=== PATIENT | female | born 1955 | race Caucasian/White ===

== ENCOUNTER 2016-09-17 09:40 | Emergency (ER) | payer MEDICARE ==
[2016-09-17 09:56] LABS: BASOPHIL# 0.1 X 10^3uL (0.0-0.1); BASOPHILS 0.7 % (0.0-2.0); EOSINOPHILS 3.7 % (0.0-6.0); EOSINOPHILS# 0.3 X 10^3uL (0.0-0.4); HEMOGLOBIN 14.7 g/dL (12.0-16.0); LYMPHOCYTES 42.1 % (20.0-40.0); LYMPHOCYTES# 3.4 X 10^3uL (0.8-3.8); MEAN CELL VOLUME 87.2 fL (80.0-100.0); MEAN CORPUS. HGB CONCENTRATION 34.1 g/dL (32.0-36.0); MEAN CORPUSCULAR HEMOGLOBIN 29.7 pg (29.0-35.0); MONOCYTES 9.5 % (2.0-10.0); MONOCYTES# 0.8 X 10^3uL (0.2-1.0); NEUTROPHILS# 3.4 X 10^3uL (2.6-6.7); PLATELET COUNT 290 X 10^3uL (130-440); RED BLOOD COUNT 4.94 X 10^6uL (4.20-6.10); RED CELL DISTRIBUTION WIDTH 13.1 % (11.5-14.5); WHITE BLOOD COUNT 8.1 X 10^3uL (3.9-10.7)
[2016-09-17] MEDS ORDERED: LIDOCAINE VISCOUS 2% 15 ML UDC ONE (10:04)
[2016-09-17] MEDS ORDERED: MAG-AL PLUS XS SUSP 30 ML UDC ONE (10:04)
[2016-09-17 10:08] LABS: BLOOD UREA NITROGEN 13 mg/dL (7-17); CALCIUM 9.2 mg/dL (8.4-10.2); CHLORIDE 104 mmol/L (98-107); CREATININE 0.7 mg/dL (0.5-1.0); EST GLOMERULAR FILTRATION RATE > 60 mL/min; GLUCOSE 120 mg/dL (70-100); MAGNESIUM 2.2 mg/dL (1.6-2.3); SODIUM 142 mmol/L (137-145)
--- NOTE | 2016-09-17 10:17 | RADIOLOGY REPORT ---
HISTORY: Chest pain. COMPARISON: None available. FINDINGS: 1 view of the chest obtained. Normal heart size. Grossly normal central pulmonary vessels and medias tinal contour. No confluent alveolar infiltrates. No pleural effusions. No pneumothorax. Anterior plate and screw device lower cervical spine. Degenerative changes thoracic spine. No definit e evidence for acute fracture. IMPRESSION: No evidence for active cardiopulmonary disease. Final Electronic Signature: This report was electronically signed by Ebenezer Alexander MD, FACR on 10:15 AM. [email or web address] /
[2016-09-17 10:23] LABS: TROPONIN I < 0.012 ng/mL (0.00-0.034)
[2016-09-17] MEDS ORDERED: NITROGLYCERIN 0.4 MG TAB.SUBL SUBLINGUAL ONE (10:27)
--- NOTE | 2016-09-17 11:07 | ER PHYSICIAN DOCUMENTATION ---
Physician Documentation [facility] Name:Karin Layne Age:60 yrs Sex:Female :1955 Arrival Date:09/17/2016 Time:09:40 BedTrauma-C Private MD:Chandni Bai ED, Scott Disposition: 09/17 10:42 Critical Care: not applicable. il Disposition: 09/17/16 10:44 Discharged to Home/Self Care. Impression: Esophageal Reflux. - Condition is Good. - Discharge Instructions: REFLUX ESOPHAGITIS Adult - ESOPHAGEAL REFLUX (Adult). - Medical Reconciliation form form. - Follow up: Chandni Bai DO; When: 1 week; Reason: Recheck today's complaints. - Problem is new. - Symptoms have improved. HPI: 09:51 This 60 yrs old Female presents to ER with complaints of Chest Pressure. il 09:51 The patient or guardian reports chest pain that is located primarily in the epigastric sc area, anterior chest wall. Onset: at 07:30. The pain does not radiate. There has been no movement of pain. Associated signs and symptoms: The patient has no apparent associated signs or symptoms. The chest pain is described as a pressure. Duration: The patient or guardian reports a single episode, that lasted 2 hour(s). Modifying factors: The symptoms are alleviated by sitting up. Historical: - Allergies: Wellbutrin; PENICILLINS; - Home Meds: 1. oxycodone-acetaminophen 10-325 mg oral tab 1 tab every 6 hours 2. OXYGEN 3. duloxetine 30 mg oral cpDR 1 cap 2 times per day 4. [place] Thyroid 60 mg oral tab 5. modafinil 200 mg oral tab 1 tab once daily 6. losartan-hydrochlorothiazide 100-25 mg oral tab 1 tab once daily 7. omeprazole 40 mg oral cpDR 1 cap once daily before a meal 8. astelin 137 MCG SPRAY 9. Flonase 50 mcg/actuation nasal spsn 1 spray 2 times per day 10. cyanocobalamin (vitamin B-12) 1,000 mcg oral tab - PMHx: THYROID PROBLEM; CHRONIC PAIN; SPINAL CORD INJURY C1-C7; HYPOXIA; OBESITY; SLEEP APNEA; HYPERCHOLESTEROLEMIA; DIABETES - IDDM; - Tetanus: < 10 years. - Ebola Screening: : Patient negative for fever greater than or equal to 101.5 degrees Fahrenheit, and additional compatible Ebola Virus Disease symptoms. - Immunization history: Flu Vaccine < 1 year. - Social history: Smoking status: Patient states former smoker of tobacco. ROS: 09:52 Constitutional: Negative for fever, chills, and weight loss. sc Eyes: Negative for injury, pain, redness, and discharge. ENT: Negative for injury, pain, and discharge. Neck: Negative for injury, pain, and swelling. Respiratory: Negative for shortness of breath, cough, wheezing, and pleuritic chest pain. Abdomen/GI: Negative for abdominal pain, nausea, vomiting, diarrhea, and constipation. Back: Negative for injury and pain. MS/Extremity: Negative for injury and deformity. Skin: Negative for injury, rash, and discoloration. 09:52 Neuro: Negative for headache, weakness, numbness, tingling, and seizure. sc 09:52 Cardiovascular: Positive for chest pain. Exam: Constitutional: This is a well developed, well nourished patient who is awake, alert, and in no acute distress. Head/Face: Normocephalic, atraumatic. Eyes: Pupils equal round and reactive to light, extra-ocular motions intact. Lids and lashes normal. Conjunctiva and sclera are non-icteric and not injected. Cornea within normal limits. Periorbital areas with no swelling, redness, or edema. ENT: Nares patent. No nasal discharge, no septal abnormalities noted. Tympanic membranes are normal and external auditory canals are clear. Oropharynx with no redness, swelling, or masses, exudates, or evidence of obstruction, uvula midline. Mucous membranes moist. Neck: Trachea midline, no thyromegaly or masses palpated, and no cervical lymphadenopathy. Supple, full range of motion without nuchal rigidity, or vertebral point tenderness. No meningismus. Chest/axilla: Normal chest wall appearance and motion. Nontender with no deformity. No lesions are appreciated. Cardiovascular: Regular rate and rhythm with a normal S1 and S2. No gallops, murmurs, or rubs. Normal PMI, no JVD. No pulse deficits. Respiratory: Lungs have equal breath sounds bilaterally, clear to auscultation and percussion. No rales, rhonchi or wheezes noted. No increased work of breathing, no retractions or nasal flaring. Abdomen/GI: Soft, non-tender, with normal bowel sounds. No distension or tympany. No guarding or rebound. No evidence of tenderness throughout. Back: No spinal tenderness. No costovertebral tenderness. Full range of motion. 09:52 Skin: Warm, dry with normal turgor. Normal color with no rashes, no lesions, and no sc evidence of cellulitis. 10:45 Cardiovascular: Rate: normal, Rhythm: regular. il Vital Signs: 09:45 BP 117 / 79; Pulse 82; Resp 17; Temp 98.3(TE); Pulse Ox 93% on 2 lpm NC; Weight 106.59 rh kg; Height 5 ft. 4 in. (162.56 cm); Pain 1/10; 11:05 BP 139 / 79; Pulse 80; Resp 16; Pulse Ox 95% on 2 lpm NC; Pain 0/10; rh 09:45 Body Mass Index 40.34 (106.59 kg, 162.56 cm) rh MDM: 09:43 Patient medically screened. il 09:48 EKG attached rh 10:41 Differential diagnosis: acute myocardial infarction, acute pericarditis, anxiety, sc esophagitis, gastroesophageal reflux disease (GERD). Patient took aspirin. Data reviewed: vital signs, nurses notes, old medical records, lab test result(s), EKG, radiologic studies, and as a result, I will continue to observe the patient. 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 ECG:. 10:44 Patient did not receive fibrinolytic due to. il 10:45 ED course: Symptoms resolved with gi cocktail and walking around and patient said early sc satiety in recent months. Consider further eval for hiatal hernia, gastritis. Will continue daily prilosec.. 09/17 09:57 Order name: CBC AUTO DIF, MDIF/RMOR IF IND; Complete Time: 10:46 EDMS 09/17 10:46 Interpretation: Normal: Normal. il 09/17 10:24 Order name: BASIC METABOLIC PANEL; Complete Time: 10:30 EDMS 09/17 10:30 Interpretation: Normal. il 09/17 10:24 Order name: MAGNESIUM; Complete Time: 10:30 EDMS 09/17 10:30 Interpretation: Normal. il 09/17 10:24 Order name: TROPONIN I; Complete Time: 10:30 EDMS 09/17 10:30 Interpretation: Normal. il 09/17 10:08 Order name: CHEST; [place] [id number] [facility] 09/17 10:19 Order name: CHEST; [place] [id number]; Complete Time: 10:30 [facility] 09/17 10:30 Interpretation: Normal. il 09/17 09:49 Order name: EKG - 12 Lead; Complete Time: 09:50 09/17 09:49 Order name: Iv Saline Lock; Complete Time: 09/17 09:49 Order name: Oxygen; Complete Time: 09/17 09:49 Order name: Cardiac Monitoring - Continuous; Complete Time: 09/17 09:49 Order name: Pulse Ox Continuous; Complete Time: EC:41 Rate is 70 beats/min. Rhythm is regular. QRS [place] is Normal. CA interval is normal. QRS sc interval is normal. QT interval is normal. No Q waves. T waves are Normal. No ST changes noted. Clinical impression: Normal ECG. Interpreted by me. Reviewed by me. Dispensed Medications: 09:53 Drug: GI Cocktail w/o Donnatol - (Maalox Suspension 30 ml, Lidocaine Liquid 2 % 15 ml); rh Route: PO; 10:12 Follow up: Response: No adverse reaction 10:17 Drug: Nitroglycerin 0.4 mg; Route: Sublingual; 11:06 Follow up: Response: No adverse reaction 10:17 Drug: Aspirin 81 mg, 4 tabs, total of 324 mg - Aspirin 81 mg; Route: PO; 11:06 Follow up: Response: No adverse reaction Point of Care Testing: Urine Dip: 10:40 pH: 7.0; ; Specific [place]: 1.015; Ketones: Negative; Glucose: Negative; Protein: em3 Negative; Leukocytes: Negative; Nitrite: Negative ; Blood: Negative; Bilirubin: Negative ; Urobilinogen: Normal Signatures: Jasbir Gardner MD MD sc Hofsess, Rachel
--- NOTE | 2016-09-17 11:07 | ER NURSING DOCUMENTATION ---
Nurse's Notes [facility] Name:Karin Layne Age:60 yrs Sex:Female :1955 Arrival Date:09/17/2016 Time:09:40 BedTrauma-C Private MD:Chandni Bai Diagnosis:Esophageal Reflux Presentation: 09/17 09:46 Acuity: SAMM 2 st 09:47 AIR CAT ACTIVATION no. rh 09:54 Presenting complaint: Patient states: Pt woke up this AM at 0830 with a tightness and rh heaviness in her chest. Pt felt SOB and had to place her oxygen she uses at home on. Transition of care: [facility]. 09:54 Method Of Arrival: Wheelchair rh 11:06 Asprin Given Given in ED 324 mg po. rh Triage Assessment: 09:45 General: Appears in no apparent distress, Behavior is cooperative. Pain: Denies pain. rh EENT: Oral mucosa is moist. Neuro: Level of Consciousness is awake, alert, obeys commands, Oriented to person, place, time, event. Cardiovascular: Capillary refill < 3 seconds Reports shortness of breath Denies lightheadedness, Rhythm is sinus rhythm Chest pain quality is heaviness, is located in anterior chest wall began 1 hour prior to arrival episodes are continuous. Respiratory: Airway is patent Respiratory effort is even, unlabored, Breath sounds are clear bilaterally. Reports shortness of breath Denies cough. GI: Abdomen is obese, Denies diarrhea, nausea, vomiting. : No deficits noted. Derm: Skin is intact, is healthy with good turgor, Skin is pink, warm & dry. Historical: - Allergies: Wellbutrin; PENICILLINS; - Home Meds: 1. oxycodone-acetaminophen 10-325 mg oral tab 1 tab every 6 hours 2. OXYGEN 3. duloxetine 30 mg oral cpDR 1 cap 2 times per day 4. [place] Thyroid 60 mg oral tab 5. modafinil 200 mg oral tab 1 tab once daily 6. losartan-hydrochlorothiazide 100-25 mg oral tab 1 tab once daily 7. omeprazole 40 mg oral cpDR 1 cap once daily before a meal 8. astelin 137 MCG SPRAY 9. Flonase 50 mcg/actuation nasal spsn 1 spray 2 times per day 10. cyanocobalamin (vitamin B-12) 1,000 mcg oral tab - PMHx: THYROID PROBLEM; CHRONIC PAIN; SPINAL CORD INJURY C1-C7; HYPOXIA; OBESITY; SLEEP APNEA; HYPERCHOLESTEROLEMIA; DIABETES - IDDM; - Tetanus: < 10 years. - Ebola Screening: : Patient negative for fever greater than or equal to 101.5 degrees Fahrenheit, and additional compatible Ebola Virus Disease symptoms. - Immunization history: Flu Vaccine < 1 year. - Social history: Smoking status: Patient states former smoker of tobacco. Screenin:08 Infectious Disease Risk None. Abuse screen: Denies threats or abuse. Denies injuries rh from another. Nutritional screening: No deficits noted. Assessment: 09:53 See Triage Assessment done by same RN. rh Vital Signs: 09:45 BP 117 / 79; Pulse 82; Resp 17; Temp 98.3(TE); Pulse Ox 93% on 2 lpm NC; Weight 106.59 rh kg; Height 5 ft. 4 in. (162.56 cm); Pain 1/10; 11:05 BP 139 / 79; Pulse 80; Resp 16; Pulse Ox 95% on 2 lpm NC; Pain 0/10; rh 09:45 Body Mass Index 40.34 (106.59 kg, 162.56 cm) rh ED Course: 09:41 Patient arrived in ED. lm3 09:41 Chandni Bai DO is Private Physician. lm3 09:42 EKG done. (by ED staff). Reviewed by Jasbir Gardner MD. Oxygen Oxygen administration via rh nasal cannula @ 2L/min. 09:43 Jasbir Gardner MD is Attending Physician. pa 09:45 Mckayla Edmond, RN is Primary Nurse. st 09:45 Inserted peripheral IV: 20 gauge in right antecubital area and blood collected. st 09:45 Notified ED Physician of patient's arrival and chief complaint. Dr. Gardner notified. rh 09:45 satellite project site monitor on. Pulse ox on. NIBP on. rh 09:[address] 09:47 Larisa Riley is Primary Nurse. rh 09:48 EKG attached rh 10:08 CHEST; [place] [id number] In Process Unspecified. EDMS 10:08 Valuables Remains with patient Patient has correct armband on for positive rh identification. Placed in gown. Bed in low position. Call light in reach. Side rails up X 1. 10:42 Chandni Bai DO is Referral Physician. sc Administered Medications: 09:53 Drug: GI Cocktail w/o Donnatol - (Maalox Suspension 30 ml, Lidocaine Liquid 2 % 15 ml); Route: PO; 10:12 Follow up: Response: No adverse reaction 10:17 Drug: Nitroglycerin 0.4 mg; Route: Sublingual; 11:06 Follow up: Response: No adverse reaction 10:17 Drug: Aspirin 81 mg, 4 tabs, total of 324 mg - Aspirin 81 mg; Route: PO; 11:06 Follow up: Response: No adverse reaction Point of Care Testing: Urine Dip: 10:40 pH: 7.0; ; Specific [place]: 1.015; Ketones: Negative; Glucose: Negative; Protein: em3 Negative; Leukocytes: Negative; Nitrite: Negative ; Blood: Negative; Bilirubin: Negative ; Urobilinogen: Normal Outcome: 10:44 Discharge ordered by . pa 11:05 Discharged to home ambulatory. 11:05 Condition: improved 11:05 Discharge Assessment: Patient awake, alert and oriented x 3. No cognitive and/or functional deficits noted. Patient verbalized understanding of disposition instructions. 11:05 Discharge instructions given to patient, Instructed on discharge instructions, follow up and referral plans. Demonstrated understanding of instructions. 11:05 IV D/Yobany 11:06 Patient left the ED. Signatures: Dispatcher [employer] Mckayla Arizmendi RN RN st Chew, Scott, MD MD pa Parviz Mcnulty3 Larisa Riley Jody Vigil lm3
== END 2016-09-17 11:06 | disposition home or self-care (01) ==
LOC: ER 09:40
DX: K21.0 Gastro-esophageal reflux disease with esophagitis (principal); E11.65 Type 2 diabetes mellitus with hyperglycemia; R07.89 Other chest pain; G89.29 Other chronic pain; Z79.899 Other long term (current) drug therapy
CPT/HCPCS: 71010; 80048; 83735; 84484; 85025; 93005; 93010; 99285